=== PATIENT | male | born 1990 | race Caucasian/White ===

== ENCOUNTER 2017-12-13 18:17 | Emergency (ER) ==
[2017-12-13 18:19] VITALS: BP 158/87; TEMP 98.5; BMI 31.5
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
--- NOTE | 2017-12-13 18:57 | DI ---
EXAM: Three views of the right foot HISTORY: Painful arch. COMPARISON: None FINDINGS: There is no cortical irregularity or displaced fracture of the right foot. The joint space s are maintained. The arch is maintained. The soft tissues are unremarkable. No lytic or blastic l esion is identified. IMPRESSION: No acute abnormality of the right foot.
== END 2017-12-13 19:50 | disposition home or self-care (01) ==
LOC: ED 18:17
DX: M72.2 Plantar fascial fibromatosis (principal); Z72.0 Tobacco use
CPT/HCPCS: 99282

== ENCOUNTER 2017-12-25 11:43 | Outpatient (CLI) ==
--- NOTE | 2017-12-25 13:50 | MRI ---
EXAM: MRI of the right forefoot without contrast COMPARISON: Right foot radiographs 12/13/2017. HISTORY: Pain in the arch of the foot after standing. TECHNIQUE: Multiplanar noncontrast MR images of the right midfoot and forefoot were acquired using a 1.2 Manisha magnet. FINDINGS: There is no evidence of an acute fracture, osteomyelitis or marrow infiltrating process. Minimal degenerative spurring at the first metatarsophalangeal joint. Small first metatarsophalangea l joint effusion. Intact Lisfranc ligament fibers are identified. There is intramuscular edema involving the deep plantar foot musculature at the level of the midfoot and proximal forefoot with edema most pronounced adjacent to the lateral plantar neurovascular bundle . This is nonspecific though underlying vasculitis or thrombophlebitis cannot be excluded on the bas is of this study. There is subcutaneous edema ill-defined subcutaneous fluid along the plantar aspec t the midfoot and proximal forefoot at that level without a drainable fluid collection or discrete so ft tissue ulcer. The proximal extent of intramuscular and subcutaneous edema is incompletely assesse d with ankle/hind-foot excluded from the field of view on the current exam. Unexpected finding of inflammatory changes adjacent to the lateral plantar neurovascular bundle requi ring further assessment. The findings be called to the ordering physician's office. IMPRESSION: 1. Edema throughout the soft tissues adjacent to the lateral plantar neurovascular bundle with edema throughout the adjacent deep plantar foot musculature as well as throughout the overlying subcutaneo us tissues. This is nonspecific and may be related to muscle strain/contusion or nonspecific myositi s though underlying vasculitis or thrombophlebitis cannot be excluded and correlation with clinical h istory is recommended. Recommend further assessment with right lower extremity venous Doppler in ord er to insure patency of the more proximal deep veins. The proximal extent of the abnormality is incom pletely assessed and correlation with dedicated MRI of the right ankle/hind-foot is also recommended. 2. No acute osseous abnormality. Mild degenerative changes. 3. Small first metatarsophalangeal joint effusion.
== END 2017-12-25 11:44 | disposition home or self-care (01) ==
LOC: RAD 11:43
PROVIDERS: ATTEND Family Medicine
DX: M79.671 Pain in right foot (principal)

== ENCOUNTER 2017-12-26 07:21 | Outpatient (CLI) ==
--- NOTE | 2017-12-26 09:43 | US ---
Exam: Godinez-scale and color Doppler ultrasonographic evaluation of the right lower extremity venous s tructures. Comparison: None available. Reason for exam: Pain. FINDINGS: There is spontaneous flow with adequate compression and augmentation in the right common f emoral, greater saphenous, profunda, superficial femoral, popliteal, peroneal, posterior tibial, and anterior tibial veins. Impression: No ultrasonographic evidence of thrombus is seen in the right lower extremity venous str uctures.
== END 2017-12-26 07:22 | disposition home or self-care (01) ==
LOC: RAD 07:21
PROVIDERS: ATTEND Family Medicine
DX: M79.604 Pain in right leg (principal); R93.8 Abnormal findings on diagnostic imaging of other specified body structures

== ENCOUNTER 2018-11-20 15:08 | Outpatient (CLI) ==
--- NOTE | 2018-11-20 16:52 | DI ---
EXAM: Right knee three-view HISTORY: Knee pain COMPARISON: None FINDINGS: The bones are normal. The medial, lateral, and patellofemoral compartments are normal in h eight. No joint effusion. IMPERSSION: Normal examination.
== END 2018-11-20 15:09 | disposition home or self-care (01) ==
LOC: LAB 15:08
PROVIDERS: ATTEND Family Medicine
DX: M25.561 Pain in right knee (principal); Z00.00 Encounter for general adult medical examination without abnormal findings
CPT/HCPCS: 36415; 80053; 80061; 85025